=== PATIENT | male | born 1965 ===

== ENCOUNTER 2016-12-03 15:57 | Emergency (ER) | payer OTHER ==
[~2016-12-03] VITALS: Ht 172.7 cm; Wt 90.9 kg
[2016-12-03 16:26] VITALS: BP 139/89; PULSE 120; RESP 22; O2SAT 96
[2016-12-03 17:08] LABS: BASOPHILS % (AUTO) 0.5 % (0-3); EOSINOPHILS % (AUTO) 2.4 % (0-5); MONOCYTES % (AUTO) 12.1 % (4-12); Mean Corpuscular Hemoglobin 30.6 pg (27.0-35.0); Mean Corpuscular Volume 87.5 fL (81-100); NEUTROPHILS % (AUTO) 66.4 % (40-74); Platelet Count 332 bil/L (150-400)
[2016-12-03 17:44] LABS: Magnesium 2.2 mg/dL (1.6-2.6)
[2016-12-03 17:45] LABS: TROPONIN T < 0.010 ug/L (0.0-0.011)
--- NOTE | 2016-12-03 17:57 | DRSVH ---
PROCEDURE: X-RAY CHEST ONE VIEW, PORTABLE ([id number]) INDICATIONS: CHEST PAIN TECHNIQUE: One view of the chest was acquired. COMPARISON: None. FINDINGS: Surgical changes and devices: None. Lungs and pleura: No pleural effusions or pneumothorax. Lungs are clear. There is a possible nippl e shadow projecting over the left lung base Mediastinum: Mediastinal contours appear normal. Heart size is normal. Bones and chest wall: No suspicious bony lesions. Overlying soft tissues appear unremarkable. IMPRESSION: No acute disease. Possible nipple shadow projecting in the left lung base although this i s technically indeterminate. Recommend followup PA and lateral radiographs with nipple markers when c linically feasible to exclude pulmonary nodule Dictated by: Geovani Mendez M.D. on 12/03/2016 at 17:53 Approved by: Geovani Mendez M.D. on 12/03/2016 at 17:55
--- NOTE | 2016-12-03 18:06 | ED.REPORT ---
HPI-Chest Pain 40 and Over Date of Service Dec 03, 2016 ED Provider: Dr. Sanya Winslow MD A 51 year old male presents to the ED via EMS complaining of heart palpitations that began at 1000 this morning. Associated symptoms include chest pain, left arm tingling and diaphoresis. Patient recently went on a two day meth binge yesterday. This is the patient's first relapse on meth use in years. He was reportedly smoking cigarettes while also using meth. Nursing Notes Stated Complaint: CP Chief Complaint: Chest Pain Nursing Notes Reviewed: Yes Allergies: Coded Allergies: No Known Allergies (Verified , 08/17/05) General Time Seen by MD: 18:05 Chief Complaint Chest pain (Heart palpitations) Hx Obtained From: Patient Arrived By: Ambulance Sudden in Onset?: No Onset Occurred: 9 - 12 hours ago Symptom Duration: Since onset Location: : Chest left: Chest right Quality: Painful Radiation: : Does not radiate Migration/Movement: Reports: None Severity: Current: No pain currently Severity: Maximum: Moderate Associated with: Reports: Diaphoresis, Palpitations Pertinent Negative: Pt denies other symptoms Recent Healthcare: No recent doctor visit, No recent hospitalization Risk Factors )( CAD Risk Stratification Risk factors reviewed )( TAD Risk Stratification Risk factors reviewed )( PE Risk Stratification Risk factors reviewed Past Medical History Past Medical History None reported. Past Surgical History None reported. Smoking History Current Every Day Smoker Social History Recently relapsed 12/01/16 Drug Use: Meth Other Social History: Good social support, Local resident Ambulatory Status Independent Review of Systems Cardiovascular: Reports: Chest pain, Palpitations Skin: Reports Diaphoresis Complete sys rev & neg: except as marked. Physical Exam Initial Vital Signs Vital Signs (First) Date Time Temp Pulse Resp B/P Pulse Ox O2 Delivery O2 Flow Rate FiO2 12/03/16 16:26 120 22 139/89 96 Room Air 12/03/16 18:10 37 Initial VS: Reviewed Head / Eyes: Atraumatic, Normocephalic, PERRL Neck: Supple, Non-tender, Full range of motion Extremities: Vascular intact, Neuro intact, No swelling, No tenderness Skin: Warm, Dry, No cyanosis Neurologic: Alert, Oriented, Nonfocal Psychiatric: Mood/affect normal, Behavior normal, Normal thought content General/Constitutional: Awake, Alert Behavior: Positive: Anxious Respiratory / Chest: Atraumatic, Breath sounds NL, Breath sounds = bilat, No respiratory distress Cardiovascular: Regular rhythm, Heart sounds NL Heart Rate / Rhythm: Positive: Tachycardia Abdomen: Atraumatic, Soft, Non-tender Interpretation & Diagnostics Lab Results Interpretation Result Diagram: 12/03/16 1625 12/03/16 1625 Test 12/03/16 16:25 12/03/16 20:43 White Blood Count 11.6th/mm3 (3.8-10.1) Red Blood Count 5.53mil/mm3 (4.40-5.80) Hemoglobin 16.9g/dL (13.8-17.2) Hematocrit 48.4% (41.0-50.0) Mean Corpuscular Volume 87.5fL (81-100) Mean Corpuscular Hemoglobin 30.6pg (27.0-35.0) Mean Corpuscular Hemoglobin Concent 34.9% (32.0-37.0) Red Cell Distribution Width 13.1% (12.3-15.4) Platelet Count 332bil/L (150-400) Neutrophils (%) (Auto) 66.4% (40-74) Lymphocytes (%) (Auto) 18.4% (14-46) Monocytes (%) (Auto) 12.1% (4-12) Eosinophils (%) (Auto) 2.4% (0-5) Basophils (%) (Auto) 0.5% (0-3) Hold Purple Top Tube Received (Received) D-Dimer 0.61mg/L FEU (<0.50) Hold Blue Top Tube Received (Received) Sodium Level 137mEq/L (134-144) Potassium Level 3.7mEq/L (3.5-5.2) Chloride Level 95mEq/L (97-108) Carbon Dioxide Level 21mmol/L (18-29) Blood Urea Nitrogen 8mg/dL (6-24) Creatinine 0.98mg/dL (0.76-1.27) Estimat Glomerular Filtration Rate 86mL/min (>59) Glucose Level 103mg/dL (60-99) Calcium Level 10.0mg/dL (8.5-10.1) Magnesium Level 2.2mg/dL (1.6-2.6) Total Bilirubin 0.9mg/dL (0.0-1.2) Aspartate Amino Transf (AST/SGOT) 27U/L (0-50) Alanine Aminotransferase (ALT/SGPT) 21U/L (0-44) Alkaline Phosphatase 63U/L (25-150) Total Protein 7.8g/dL (6.4-8.4) Albumin 4.5g/dL (3.4-5.0) Hold [place] Top Tube Received (Received) Troponin T 0.010ug/L (0.0-0.011) ECG Interpretation ECG Interpretation: Sinus Tachycardia Rate 118 Time: 18:34 Interpreted by: ED physician X-Ray Chest Interpretation Chest Xray Interpretation: IMPRESSION: No acute disease. Possible nipple shadow projecting in the left lung base although this is technically indeterminate. Recommend followup PA and lateral radiographs with nipple markers when clinically feasible to exclude pulmonary nodule Dictated by: Geovani Mendez M.D. on 12/03/2016 at 17:53 Interpretation / Wet Read by: Interpret - ED physician Re-Eval/Medical Decision Med Decision/Clinical Course This is a very pleasant 51-year-old male who presents with palpitations and diaphoresis after smoking methamphetamines. He states that he was on a 2 day hendrickson. Today his heart was racing his drenched in sweat and this time to the ED visit. He also has aching in his arms. No squeezing-type anginal symptoms. No ripping or tearing pain. No history of coronary artery disease. On examination he was a bit anxious, dehydrated and tachycardic. His heart sounds were crisp. He was fluid resuscitated and his symptoms were treated with IV benzodiazepines and aspirin orally. Complete relief of symptoms. I talked to him about being admitted to the hospital he prefers not to be admitted so therefore a rule out protocol was initiated. Serial troponins were negative. Pulmonary emboli and dissection ruled out. At discharge she looked and felt great. He will be sent home with a 3 pack of Ativan to be taken for symptoms. Close outpatient follow-up. Recommend methamphetamine abstinence. Time of Eval: 18:35 Re-Evaluation/Progress Note: Patient is rechecked. He is informed of his results and diagnosis. All questions about the intended treatment plan are addressed. He understands and agrees with the plan. Counseled Regarding: Diagnosis, Lab results, Need for follow-up, When/why to return to ED Discharge & Departure Primary Impression: Methamphetamine abuse Additional Impression: Heart palpitations Disposition: Home Discharge Condition All VS Reviewed: Yes Condition: Improved Patient Instructions: Chest Pain (ED), Heart Palpitations (ED), Methamphetamine Abuse (ED) Additional Instructions: Thank you for trusting us with your care this evening. Your emergency department results are reassuring that there is no dangerous cause for concern at this time. I believe that your symptoms are likely due to the recent meth use. Take 1 Ativan every 8 hours for your symptoms. Please do not drink or drive while on this medication. Do not drink, drive or use alcohol tonight as you received sedative medication this evening. Please abstain from any meth use in the future. It is very damaging to your heart. Schedule a follow up appointment with your primary care physician in the next 2- 3 days for a recheck. See the referred line assigner and schedule a follow up appointment in the next week or so for a recheck. Please return to the emergency department if you begin to develop any new or worsening conditions including any difficultly breathing, chest pain, heart palpitations, high fevers, shaking chills, or any numbness/tingling in your extremities. Referrals: [facility] (PCP) [facility] Dane Jackson MD Attestation Portions of this note were transcribed by Dinah Monteiro. I, Dr. Winslow personally performed the history, physical exam and medical decision-making; I reviewed and confirmed the accuracy of the information in the transcribed note. Signed by: Gregorio Owens, 12/03/16 [id number]. Sanya Winslow DO Dec 03, 2016 18:05 DINAH MONTEIRO Dec 03, 2016 18:36
[2016-12-03 18:10] VITALS: BP 153/97; PULSE 86; RESP 20; O2SAT 97
[2016-12-03] MEDS ORDERED: 0.9% Sodium Chloride 1,000 ML IV SCH (18:35)
[2016-12-03] MEDS ORDERED: 0.9% Sodium Chloride 1,000 ML IV ONE (20:30)
[2016-12-03 21:06] VITALS: BP 144/103; PULSE 115; RESP 20; O2SAT 98
--- NOTE | 2016-12-03 22:00 | DRSVH ---
PROCEDURE: CT ANGIO CHEST PULMONARY EMBOLISM ([id number]) INDICATIONS: chest pain, persistent tachycardia TECHNIQUE: After the administration of intravenous contrast, 2 mm thick sections acquired from the pulmonary api lloyd to the posterior costophrenic angles. 3-dimensional maximum intensity projection (MIP) coronal a nd sagittal reformats were then acquired through the thorax. For radiation dose reduction, the follo wing was used: automated exposure control, adjustment of mA and/or kV according to patient size. COMPARISON: None. FINDINGS: Image quality: Suboptimal due to heterogeneous opacification of the segmental pulmonary arteries Pulmonary arteries: Pulmonary arteries are normal in size, and demonstrate no intraluminal filling d efects to suggest central pulmonary embolism. Evaluation of the segmental pulmonary arteries is limit ed due to heterogeneous opacification Lungs and pleura: Lungs are clear. No pleural effusions or pneumothorax. Central and peripheral ai rways are patent. Mediastinum: Heart size is normal, without pericardial effusion. No mediastinal or hilar adenopathy . Thoracic aorta is normal in caliber and enhancement. Esophagus is normal in caliber, without hiat al hernia. Bones and chest wall: No suspicious bony lesions. Ribs and thoracic spine appear intact throughout. Thyroid gland negative. No axillary or supraclavicular adenopathy. Abdomen: Visualized upper abdominal solid organs appear normal in the early arterial phase of enhanc ement. IMPRESSION: Mildly suboptimal examination however no gross or central filling defect to suggest pulmonary embolis m. Mild bibasal atelectasis. Dictated by: Geovani Mendez M.D. on 12/03/2016 at 21:54 Approved by: Geovani Mendez M.D. on 12/03/2016 at 21:58
[2016-12-03] MEDS ORDERED: _LORazepam 1 mg Tablet PO PRN (22:15)
[2016-12-03 22:42] VITALS: BP 156/94; PULSE 78; RESP 20; O2SAT 98
== END 2016-12-03 22:53 | disposition home or self-care (01) ==
LOC: EDUNIT# 15:57 → SED 15:57 → EDBD 15:57 → SED 22:53
DX: R00.2 Palpitations (principal); F15.10 Other stimulant abuse, uncomplicated; R07.9 Chest pain, unspecified; R20.2 Paresthesia of skin; R61 Generalized hyperhidrosis; F17.200 Nicotine dependence, unspecified, uncomplicated
CPT/HCPCS: 36415; 71010; 71275; 80053; 83735; 84484; 85025; 85378; 93005; 96361; 96374; 96376; 99285; J3360; J7030; Q9967